=== PATIENT | female | born 1975 | race American Indian/Alaskan Native ===

== ENCOUNTER 2017-09-03 14:01 | Outpatient (CLI) | payer MEDICAID ==
--- NOTE | 2017-09-05 15:28 | Vascular Lab Report ---
LOWER EXTREMITY VENOUS DUPLEX: REASON FOR EXAM: Pain and swelling of the lower extremities. COMMENTS ON THE RIGHT: Chronic, partially occluding thrombus is seen in the common femoral vein, mid superficial femoral vein, and popliteal vein. The remaining veins visualized are freely compressible without evidence of internal echogenicity. Spontaneous and phasic flow is present proximally. COMMENTS ON THE LEFT: A mixture of acute and chronic thrombus is seen in the common femoral vein, vein, the superficial femoral vein, popliteal vein, the above knee greater saphenous vein, and a gastrocnemius vein. The remaining veins visualized are freely compressible without evidence of internal echogenicity. Spontaneous and phasic flow is diminished proximally. IMPRESSION: Extensive acute on chronic deep venous thrombosis noted in the left lower extremity. See text for details. Extensive chronic thrombus seen in the right lower extremity venous system. See text for details.
== END 2017-09-03 14:02 | disposition home or self-care (01) ==
LOC: VAS 14:01
PROVIDERS: ATTEND Emergency Medicine
DX: I82.501 Chronic embolism and thrombosis of unspecified deep veins of right lower extremity (principal)
CPT/HCPCS: 93970

== ENCOUNTER 2017-09-03 15:38 | Emergency (ER) | payer MEDICAID ==
--- NOTE | 2017-09-03 18:31 | Emergency Department Report ---
ED Extremity Problem HPI - General Chief complaint: Extremity Problem,Nontraumatic Stated complaint: LEG PAIN Time Seen by Provider: 09/03/17 18:00 Source: patient Mode of arrival: Ambulatory Limitations: No Limitations - History of Present Illness Initial comments: Patient is a 42-year-old black female who is complaining of leg pain. Patient states she's had some increased pain in the left thigh for approximately 2-3 days. Patient was here yesterday unable to get ultrasound I one was ordered as an outpatient. Patient does receive this ultrasound is returned here to have it checked. Patient states she's had no chest pain shortness of breath fevers chills nausea vomiting. Patient has a history of DVT in the bilateral legs but is no longer on blood thinners at this time. Location: left, lower extremity Severity scale (0 -10): 6 - Related Data Previous Rx's Medication Instructions Recorded Last Taken Type Apixaban [Eliquis] 5 mg PO BID 30 Days tablet 09/03/17 Unknown Rx HYDROcodone/APAP 5-325 [[place] 1 each PO Q6HR PRN #12 tablet 09/03/17 Unknown Rx 5/325] Allergies Allergy/AdvReac Type Severity Reaction Status Date / Time No Known Allergies Allergy Unverified 09/03/17 16:27 ED Review of Systems ROS: Stated complaint: LEG PAIN Other details as noted in HPI Comment: All other systems reviewed and negative ED Past Medical Hx - Past Medical History Previous Medical History?: No - Surgical History Past Surgical History?: No - Social History Smoking Status: Never Smoker Substance Use Type: None - Medications Home Medications: Home Medications Medication Instructions Recorded Confirmed Last Taken Type Apixaban [Eliquis] 5 mg PO BID 30 Days tablet 09/03/17 Unknown Rx HYDROcodone/APAP 5-325 [[place] 1 each PO Q6HR PRN #12 tablet 09/03/17 Unknown Rx 5/325] ED Physical Exam - General Limitations: No Limitations General appearance: alert, in no apparent distress - Head Head exam: Present: atraumatic, normocephalic - Eye Eye exam: Present: normal appearance - ENT ENT exam: Present: mucous membranes moist - Neck Neck exam: Present: normal inspection - Respiratory Respiratory exam: Present: normal lung sounds bilaterally. Absent: respiratory distress - Cardiovascular Cardiovascular Exam: Present: regular rate, normal rhythm. Absent: systolic murmur, diastolic murmur, rubs, gallop - GI/Abdominal GI/Abdominal exam: Present: soft, normal bowel sounds - Extremities Exam Extremities exam: Present: normal inspection, full ROM, tenderness (left medial thigh) - Back Exam Back exam: Present: normal inspection - Neurological Exam Neurological exam: Present: alert, oriented X3 - Psychiatric Psychiatric exam: Present: normal affect, normal mood - Skin Skin exam: Present: warm, dry, intact, normal color. Absent: rash ED Course Vital Signs 09/03/17 16:23 Temperature 98.6 F Pulse Rate 64 Respiratory 16 Rate Blood Pressure 113/74 O2 Sat by Pulse 99 Oximetry ED Medical Decision Making - Medical Decision Making Ultrasound did show acute on chronic DVT in the left lower extremity. Please see report. Patient be started on Eliquis and will be discharged home. Critical care attestation.: If time is entered above; I have spent that time in minutes in the direct care of this critically ill patient, excluding procedure time. ED Disposition Clinical Impression: DVT (deep venous thrombosis) Qualifiers: Affected thrombotic vein of extremity: unspecified vein of extremity Chronicity : unspecified Laterality: left Disposition: DC-01 TO HOME OR SELFCARE Is pt being admited?: No Does the pt Need Aspirin: No Condition: Fair Instructions: Deep Venous Thrombosis (ED) Prescriptions: Apixaban [Eliquis] 5 mg PO BID 30 Days tablet HYDROcodone/APAP 5-325 [[place] 5/325] 1 each PO Q6HR PRN #12 tablet PRN Reason: Pain Referrals: PRIMARY CARE, [Primary Care Provider] - 3-5 Days
[2017-09-03] MEDS ORDERED: NORCO 5/325 PO ONE (18:32)
[2017-09-03] MEDS ORDERED: ELIQUIS PO ONE (19:00)
[2017-09-03 19:51] VITALS: BP 144/72
== END 2017-09-03 19:50 | disposition home or self-care (01) ==
LOC: ED 15:38
DX: I82.412 Acute embolism and thrombosis of left femoral vein (principal); I82.432 Acute embolism and thrombosis of left popliteal vein; Z86.718 Personal history of other venous thrombosis and embolism
CPT/HCPCS: 99282